=== PATIENT | female | born 1955 | race Caucasian/White ===

== ENCOUNTER 2023-04-02 21:19 | Inpatient (IN) | payer MEDICARE, MEDICAID ==
[~2023-04-02] VITALS: Ht 160 cm; Wt 70.5 kg
[~2023-04-02 21:19] MED LIST: CALCIUM+VIT D PO; COUM1TAB18 PO; FERR325T3 PO; MULTTAB4 PO; OXYC1TAB23 PO; TRAMADOL PO; TYLE-18 PO; TYLE325T5 PO; VITAMIN E PO; VITATAB64 PO
[2023-04-02] MEDS ORDERED: flumazeniL 0.5MG/5ML VIAL IV STA (21:28)
[2023-04-02] MEDS ORDERED: NS 1,000 ML IV SCH (21:30)
[2023-04-02] MEDS ORDERED: flumazeniL 0.5MG/5ML VIAL As Ordered ONE (21:30)
[2023-04-02] MEDS ORDERED: ROCURONIUM BROMIDE 50MG/5ML VIAL ONE (21:30)
[2023-04-02] MEDS ORDERED: NALOXONE 2MG/2ML SYRINGE As Ordered ONE (21:38)
[2023-04-02 21:46] LABS: BASO # 0.1 10^3/uL (0.0-0.2); BASO % 1.1 % (0.0-1.0); EOS # 0.1 10^3/uL (0.0-0.5); EOS % 1.8 % (0.0-3.0); HEMATOCRIT 34.1 % (36.0-47.0); HEMOGLOBIN 10.5 g/dl (12.0-15.5); LYMPH # 1.4 10^3/uL (1.5-5.0); LYMPH % 23.9 % (24.0-44.0); MEAN CORPUSCULAR HEMOGLOBIN 28.5 pg (27.0-33.0); MEAN CORPUSCULAR HGB CONC 30.8 g/dl (32.0-36.5); MEAN CORPUSCULAR VOLUME 92.7 fl (80.0-96.0); MONO # 0.5 10^3/uL (0.0-0.8); MONO % 9.6 % (2.0-8.0); NEUTROPHILS # 3.6 10^3/uL (1.5-8.5); NEUTROPHILS % 63.2 % (36.0-66.0); PLATELET COUNT, AUTOMATED 291 10^3/uL (150-450); RED BLOOD COUNT 3.68 10^6/uL (4.00-5.40); WHITE BLOOD COUNT 5.6 10^3/uL (4.0-10.0)
[2023-04-02 22:05] LABS: ETHYL ALCOHOL (ETHANOL) 0.118 % (0.000-0.010)
[2023-04-02 22:07] LABS: ALBUMIN 3.5 G/DL (3.2-5.2); ALKALINE PHOSPHATASE 93 U/L (46-116); ALT/SGPT 18 U/L (7.0-40); AST/SGOT 16 U/L (<34); BILIRUBIN,DIRECT < 0.1 MG/DL (<0.4); BILIRUBIN,TOTAL 0.2 MG/DL (0.3-1.2); BLOOD UREA NITROGEN 13 MG/DL (9-23); CALCIUM LEVEL 8.7 MG/DL (8.3-10.6); CARBON DIOXIDE LEVEL 20 MMOL/L (20-31); CHLORIDE LEVEL 112 MMOL/L (98-107); CPK CREATINE PHOSPHOKINASE 84 U/L (34-145); CREATININE FOR GFR 0.55 MG/DL (0.55-1.30); GLOMERULAR FILTRATION RATE > 60.0 (>45); GLUCOSE, FASTING 116 MG/DL (74-106); POTASSIUM SERUM 4.4 MMOL/L (3.5-5.1); SALICYLATE LEVEL < 3.0 MG/DL (<30); SODIUM LEVEL 144 MMOL/L (136-145); TOTAL PROTEIN 5.8 G/DL (5.7-8.2)
[2023-04-02 22:09] LABS: THYROID STIMULATING HORMONE 1.017 uIU/ML (0.55-4.78)
[2023-04-02 22:12] LABS: ABG BASE EXCESS -6.7 (-2.0-2.0); ABG HCO3 18.5 MMOL/L (22.0-26.0); ABG O2 SATURATION 97.2 % (95.0-99.0); ABG PARTIAL PRESSURE CO2 35.8 mmHg (35.0-45.0); ABG PARTIAL PRESSURE O2 184.7 mmHg (75.0-100.0); ABG TOTAL CO2 19.6 MMOL/L (23.0-31.0); ABG pH (ARTERIAL) 7.331 UNITS (7.350-7.450)
[2023-04-02 22:55] LABS: RSV AMPLIFICATION NEGATIVE (NEGATIVE)
[2023-04-03] VITALS (63 sets, daily range): BP systolic 94–156; BP diastolic 61–91; TEMP 97.2–98.8; O2SAT 97–100
[2023-04-03] MEDS ORDERED: SUCR1TAB56 PO (00:09)
[2023-04-03] MEDS ORDERED: VENL37.598 PO (00:09)
[2023-04-03] MEDS ORDERED: TRAZ-257 PO (00:09)
[2023-04-03] MEDS ORDERED: GABA-282 PO (00:09)
[2023-04-03] MEDS ORDERED: CARB25TA9 PO ×2 (00:09→11:10)
[2023-04-03] MEDS ORDERED: VENL75CA47 PO (00:09)
[2023-04-03] MEDS ORDERED: MECL-86 PO (00:09)
[2023-04-03] MEDS ORDERED: LORA1TAB23 PO (00:09)
[2023-04-03] MEDS ORDERED: CARB1TAB97 PO (00:09)
[2023-04-03] MEDS ORDERED: PANT40TA29 PO (00:09)
[2023-04-03] MEDS ORDERED: LETR2.5T2 PO (00:09)
[2023-04-03] MEDS ORDERED: TIZA10TA PO (00:09)
[2023-04-03] MEDS ORDERED: GABA-1171 PO (00:09)
[2023-04-03] MEDS ORDERED: BUPR-71 PO (00:09)
[2023-04-03] MEDS ORDERED: ARIP1TAB4 PO (00:09)
[2023-04-03] MEDS ORDERED: QUET100T2 PO (00:09)
[2023-04-03] MEDS ORDERED: XARE20TA PO (00:09)
[2023-04-03] MEDS ORDERED: LISI10TA22 PO (00:09)
[2023-04-03] MEDS ORDERED: BISO5TAB14 PO (00:09)
[2023-04-03] MEDS ORDERED: [UNRECOGNIZED DRUG - CODE] PO (00:12)
[2023-04-03] MEDS ORDERED: VITMTA PO (00:12)
[2023-04-03] MEDS ORDERED: CALCCAP4 PO (00:12)
[2023-04-03] MEDS ORDERED: FERR1TAB8 PO (00:12)
[2023-04-03] MEDS ORDERED: MAGN500C2 PO (00:12)
[2023-04-03] MEDS ORDERED: VITAE40CA PO (00:12)
[2023-04-03] MEDS ORDERED: VITA500T41 PO (00:12)
[2023-04-03] MEDS ORDERED: HOME MED LIST COMPLETE! XX SCH ×2 (00:15→11:15)
[2023-04-03] MEDS ORDERED: ALBUTEROL SULFATE 2.5MG/0.5ML INH NEB SOLN NEB PRN (00:35)
[2023-04-03 00:41] LABS: AMPHETAMINES LEVEL URINE NEGATIVE (NEGATIVE); BARBITURATES URINE NEGATIVE (NEGATIVE); CANNABINOIDS URINE NEGATIVE (NEGATIVE); COCAINE METABOLITE URINE NEGATIVE (NEGATIVE); METHADONE URINE NEGATIVE (NEGATIVE); OPIATES URINE NEGATIVE (NEGATIVE); PHENCYCLIDINE URINE NEGATIVE (NEGATIVE)
[2023-04-03 00:45] LABS: BENZODIAZEPINES URINE NEGATIVE (NEGATIVE)
[2023-04-03] MEDS ORDERED: propofoL 200 MG/20 ML VIAL As Ordered ONE (00:57)
[2023-04-03] MEDS ORDERED: PROPOFOL 1,000 MG/100 ML VIAL As Ordered ONE (00:59)
[2023-04-03] MEDS ORDERED: propofoL 1,000 MG in IV 1 EA IV SCH (01:00)
[2023-04-03] MEDS: propofoL 1,000 MG in IV 1 EA IV SCH ×5 (01:37→23:12)
[2023-04-03 02:15] LABS: ABG BASE EXCESS -6.4 (-2.0-2.0); ABG HCO3 19.1 MMOL/L (22.0-26.0); ABG O2 SATURATION 97.4 % (95.0-99.0); ABG PARTIAL PRESSURE O2 187.8 mmHg (75.0-100.0); ABG STANDARD HCO3 19.2 MMOL/L. (22.0-26.0); ABG TOTAL CO2 20.3 MMOL/L (23.0-31.0); ABG pH (ARTERIAL) 7.319 UNITS (7.350-7.450)
[2023-04-03] MEDS ORDERED: D5W IV ONE ×4 (04:30→08:30)
[2023-04-03] MEDS ORDERED: ACETYLCYSTEINE IV ONE ×4 (04:30→08:30)
[2023-04-03 05:56] LABS: ABG BASE EXCESS -5.8 (-2.0-2.0); ABG HCO3 19.2 MMOL/L (22.0-26.0); ABG O2 SATURATION 96.8 % (95.0-99.0); ABG PARTIAL PRESSURE CO2 35.6 mmHg (35.0-45.0); ABG PARTIAL PRESSURE O2 150.4 mmHg (75.0-100.0); ABG STANDARD HCO3 19.7 MMOL/L. (22.0-26.0); ABG TOTAL CO2 20.3 MMOL/L (23.0-31.0); ABG pH (ARTERIAL) 7.349 UNITS (7.350-7.450)
[2023-04-03 06:08] LABS: INR 1.14; PROTHROMBIN TIME 14.2 SECONDS (12.5-14.5)
[2023-04-03 06:35] LABS: ALBUMIN 2.6 G/DL (3.2-5.2); ALKALINE PHOSPHATASE 76 U/L (46-116); ALT/SGPT 14 U/L (7.0-40); AST/SGOT 15 U/L (<34); BILIRUBIN,TOTAL 0.3 MG/DL (0.3-1.2); BLOOD UREA NITROGEN 15 MG/DL (9-23); CALCIUM LEVEL 8.1 MG/DL (8.3-10.6); CARBON DIOXIDE LEVEL 23 MMOL/L (20-31); CHLORIDE LEVEL 109 MMOL/L (98-107); CREATININE FOR GFR 0.42 MG/DL (0.55-1.30); GLOMERULAR FILTRATION RATE > 60.0 (>45); GLUCOSE, FASTING 109 MG/DL (74-106); MAGNESIUM LEVEL 1.8 MG/DL (1.8-2.4); POTASSIUM SERUM 4.3 MMOL/L (3.5-5.1); SODIUM LEVEL 140 MMOL/L (136-145); TOTAL PROTEIN 4.8 G/DL (5.7-8.2)
[2023-04-03] MEDS: PANTOPRAZOLE 40MG VIAL IV SCH (09:25)
[2023-04-03] MEDS: ENOXAPARIN 100MG/1ML SYRINGE (J1650 PER 10MG) SC SCH (22:19)
[2023-04-03 23:55] LABS: ALBUMIN 2.5 G/DL (3.2-5.2); ALKALINE PHOSPHATASE 82 U/L (46-116); ALT/SGPT 14 U/L (7.0-40); AST/SGOT 14 U/L (<34); BILIRUBIN,DIRECT 0.1 MG/DL (<0.4); BILIRUBIN,TOTAL 0.3 MG/DL (0.3-1.2); TOTAL PROTEIN 4.7 G/DL (5.7-8.2)
[2023-04-04] VITALS (33 sets, daily range): BP systolic 129–169; BP diastolic 80–100; TEMP 98.2–99.3; O2SAT 94–98
[2023-04-04] MEDS: propofoL 1,000 MG in IV 1 EA IV SCH ×2 (04:17→08:16)
[2023-04-04 05:49] LABS: ALBUMIN 2.6 G/DL (3.2-5.2); ALKALINE PHOSPHATASE 84 U/L (46-116); ALT/SGPT 13 U/L (7.0-40); AST/SGOT 13 U/L (<34); BILIRUBIN,TOTAL 0.2 MG/DL (0.3-1.2); BLOOD UREA NITROGEN 7 MG/DL (9-23); CALCIUM LEVEL 8.9 MG/DL (8.3-10.6); CARBON DIOXIDE LEVEL 24 MMOL/L (20-31); CHLORIDE LEVEL 110 MMOL/L (98-107); CREATININE FOR GFR 0.44 MG/DL (0.55-1.30); GLOMERULAR FILTRATION RATE > 60.0 (>45); GLUCOSE, FASTING 81 MG/DL (74-106); MAGNESIUM LEVEL 1.7 MG/DL (1.8-2.4); PHOSPHORUS LEVEL 4.7 MG/DL (2.4-5.1); POTASSIUM SERUM 4.1 MMOL/L (3.5-5.1); SODIUM LEVEL 142 MMOL/L (136-145); TOTAL PROTEIN 4.8 G/DL (5.7-8.2)
[2023-04-04] MEDS ORDERED: D5W/0.9% SODIUM CHLORIDE 1,000 ML IV SCH (08:05)
[2023-04-04] MEDS: ENOXAPARIN 100MG/1ML SYRINGE (J1650 PER 10MG) SC SCH (08:15)
[2023-04-04] MEDS: PANTOPRAZOLE 40MG VIAL IV SCH (08:15)
[2023-04-04] MEDS ORDERED: MAG SULF 1GM/100ML (MAG RUN) 1 GM in IV 1 EA IV ONE (10:00)
[2023-04-04] MEDS ORDERED: hydrALAZINE 20MG/ML 1ML VIAL IV PRN (11:50)
[2023-04-04] MEDS ORDERED: tiZANidine 4 MG TAB PO PRN (13:45)
[2023-04-04] MEDS ORDERED: MECLIZINE 25 MG TABLET PO PRN (13:45)
[2023-04-04] MEDS ORDERED: LIDOCAINE 2% 100MG/5ML SDV (FOR ANES.) As Ordered ONE (16:51)
[2023-04-04] MEDS ORDERED: MIDAZOLAM INJ 2MG/2ML VIAL As Ordered ONE (16:51)
[2023-04-04] MEDS ORDERED: propofoL 200 MG/20 ML VIAL As Ordered ONE (16:51)
[2023-04-04] MEDS ORDERED: fentaNYL 100 MCG/2 ML INJECTION As Ordered ONE (16:52)
[2023-04-04] MEDS: GABAPENTIN 300 MG CAP PO SCH ×2 (17:39→20:18)
[2023-04-04] MEDS: SUCRALFATE 1 GM TAB PO SCH ×2 (17:39→20:19)
[2023-04-04] MEDS ORDERED: LORazepam 2 MG TAB PO PRN (17:50)
[2023-04-04] MEDS ORDERED: RIVAROXABAN 20MG TAB (XARELTO) PO SCH (18:00)
[2023-04-04] MEDS: THIAMINE 100 MG TAB PO SCH (18:27)
[2023-04-04] MEDS: FOLIC ACID 1MG TAB PO SCH (18:28)
[2023-04-04] MEDS: buPROPion **SR TABLET** (ZYBAN) 150MG PO SCH (20:19)
[2023-04-04] MEDS: LORazepam 1 MG TAB PO SCH (20:19)
[2023-04-04] MEDS ORDERED: QUEtiapine FUMARATE 200 MG TAB PO SCH (21:00)
[2023-04-04] MEDS ORDERED: SINEMET**CR** 25/100 TABCR PO SCH (21:00)
[2023-04-04] MEDS ORDERED: traZODone 100 MG TAB PO SCH (21:00)
[2023-04-05] VITALS (7 sets, daily range): BP systolic 115–147; BP diastolic 79–91; TEMP 97.5–100.4; O2SAT 94–96
[2023-04-05 05:10] LABS: HEMATOCRIT 34.2 % (36.0-47.0); HEMOGLOBIN 10.6 g/dl (12.0-15.5); MEAN CORPUSCULAR HEMOGLOBIN 28.2 pg (27.0-33.0); PLATELET COUNT, AUTOMATED 214 10^3/uL (150-450); RED BLOOD COUNT 3.76 10^6/uL (4.00-5.40); WHITE BLOOD COUNT 5.5 10^3/uL (4.0-10.0)
[2023-04-05 05:36] LABS: ALBUMIN 2.8 G/DL (3.2-5.2); ALKALINE PHOSPHATASE 85 U/L (46-116); ALT/SGPT < 9 U/L (7.0-40); AST/SGOT 12 U/L (<34); BILIRUBIN,TOTAL 0.6 MG/DL (0.3-1.2); BLOOD UREA NITROGEN 7 MG/DL (9-23); CALCIUM LEVEL 8.6 MG/DL (8.3-10.6); CARBON DIOXIDE LEVEL 25 MMOL/L (20-31); CHLORIDE LEVEL 110 MMOL/L (98-107); CREATININE FOR GFR 0.46 MG/DL (0.55-1.30); GLOMERULAR FILTRATION RATE > 60.0 (>45); GLUCOSE, FASTING 134 MG/DL (74-106); MAGNESIUM LEVEL 1.7 MG/DL (1.8-2.4); POTASSIUM SERUM 3.7 MMOL/L (3.5-5.1); SODIUM LEVEL 143 MMOL/L (136-145); TOTAL PROTEIN 5.1 G/DL (5.7-8.2)
[2023-04-05] MEDS ORDERED: MAG SULF 1GM/100ML (MAG RUN) 1 GM in IV 1 EA IV ONE (06:00)
[2023-04-05 07:29] LABS: ERYTHROCYTE SEDIMENTATION RATE 16 mm/hr (0-30)
[2023-04-05] MEDS ORDERED: ARIPiprazole 2 MG TAB PO SCH (09:00)
[2023-04-05] MEDS ORDERED: LETROZOLE 2.5 MG TAB PO SCH (09:00)
[2023-04-05] MEDS ORDERED: SINEMET 25-100 MG TAB PO SCH ×2 (09:00→13:00)
[2023-04-05] MEDS ORDERED: PANTOPRAZOLE 20 MG TAB PO SCH (09:00)
[2023-04-05] MEDS ORDERED: VENLAFAXINE **XR** 37.5 MG CAPSULE PO SCH (09:00)
[2023-04-05] MEDS ORDERED: VITAMIN E 400 INTERNATIONAL UNITS CAP PO SCH (09:00)
[2023-04-05] MEDS ORDERED: CYANOCOBALAMIN 500 MCG TAB PO SCH (09:00)
[2023-04-05] MEDS ORDERED: MULTIVITAMINS/MINERALS THERAP 1 TAB PO SCH (09:00)
[2023-04-05] MEDS ORDERED: VENLAFAXINE **XR** 75MG CAPSULE PO SCH (09:00)
[2023-04-05] MEDS ORDERED: CALCIUM/VITAMIN D 500 MG TAB PO SCH (09:00)
[2023-04-05] MEDS ORDERED: MAGNESIUM OXIDE 400MG TAB (MAG-OX) PO SCH (09:00)
[2023-04-05] MEDS ORDERED: FERROUS SULFATE 325MG TAB PO SCH (09:00)
[2023-04-05] MEDS ORDERED: bisoproloL fumarate 5 MG TAB PO SCH (09:00)
[2023-04-05] MEDS ORDERED: OMEGA-3 1000MG CAPSULE PO SCH (09:00)
[2023-04-05] MEDS: SUCRALFATE 1 GM TAB PO SCH (10:03)
[2023-04-05] MEDS: THIAMINE 100 MG TAB PO SCH (10:05)
[2023-04-05] MEDS: GABAPENTIN 300 MG CAP PO SCH (10:06)
[2023-04-05] MEDS: buPROPion **SR TABLET** (ZYBAN) 150MG PO SCH (10:06)
[2023-04-05] MEDS: LORazepam 1 MG TAB PO SCH (10:07)
[2023-04-05] MEDS: FOLIC ACID 1MG TAB PO SCH (10:07)
== END 2023-04-05 14:58 | DRG 917 ==
LOC: M ED 21:19 → EDBD 21:19 → M ED INP 04-03 00:32 → M ICU 04-03 01:47
PROVIDERS: ADMIT Internal Medicine; ATTEND Student in an Organized Health Care Education/Training Program
DX: T54 Toxic effect of corrosive substances (principal); U07.1 COVID-19; J96.90 Respiratory failure, unspecified, unspecified whether with hypoxia or hypercapnia; G92.8 Other toxic encephalopathy; F13.20 Sedative, hypnotic or anxiolytic dependence, uncomplicated; F33.2 Major depressive disorder, recurrent severe without psychotic features; K21.9 Gastro-esophageal reflux disease without esophagitis; C50.919 Malignant neoplasm of unspecified site of unspecified female breast; I10 Essential (primary) hypertension; G20.A1 Parkinson's disease without dyskinesia, without mention of fluctuations; I48.0 Paroxysmal atrial fibrillation; D50.9 Iron deficiency anemia, unspecified; Z79.01 Long term (current) use of anticoagulants; F41.9 Anxiety disorder, unspecified; Z88.5 Allergy status to narcotic agent; Z79.899 Other long term (current) drug therapy; G62.9 Polyneuropathy, unspecified; M54.50 Low back pain, unspecified; T18.2XXA Foreign body in stomach, initial encounter; W44.E2XA Non-magnetic metal coin entering into or through a natural orifice, initial encounter

== ENCOUNTER 2023-04-05 13:14 | Inpatient (IN) | payer MEDICAID, MEDICARE ==
[~2023-04-05 13:14] MED LIST changes: +ARIP1TAB4 PO; +BISO5TAB14 PO; +BUPR-71 PO; +CALCCAP4 PO; +CARB1TAB97 PO; +CARB25TA9 PO; +FERR1TAB8 PO; +GABA-1171 PO; +GABA-282 PO; +LETR2.5T2 PO; +LISI10TA22 PO; +LORA1TAB23 PO; +MAGN500C2 PO; +MECL-86 PO; +PANT40TA29 PO; +QUET100T2 PO; +SUCR1TAB56 PO; +TIZA10TA PO; +TRAZ-257 PO; +VENL37.598 PO; +VENL75CA47 PO; +VITA500T41 PO; +VITAE40CA PO; +VITMTA PO; +XARE20TA PO; +[UNRECOGNIZED DRUG - CODE] PO
[2023-04-05] MEDS ORDERED: diphenhydrAMINE 25MG CAP PO PRN (13:20)
[2023-04-05] MEDS ORDERED: traZODone 50 MG TAB PO PRN (13:20)
[2023-04-05] MEDS ORDERED: ACETAMINOPHEN TAB 650MG DOSE (2X325MG) PO PRN (13:20)
[2023-04-05] MEDS ORDERED: MOM 30ML SUSPENSION UDC PO PRN (13:20)
[2023-04-05] MEDS ORDERED: MAALOX 30 ML SUSP *UDC PO PRN (13:20)
[2023-04-05] MEDS ORDERED: IBUPROFEN 400MG TAB PO PRN (13:20)
[2023-04-05] MEDS ORDERED: MECLIZINE 25 MG TABLET PO PRN (13:50)
[2023-04-05] MEDS ORDERED: tiZANidine 4 MG TAB PO PRN (13:50)
[2023-04-05] MEDS ORDERED: LORazepam 2 MG TAB PO PRN (13:50)
[2023-04-05 15:05] VITALS: BP 130/89; TEMP 98.4; O2SAT 99
[2023-04-05] MEDS ORDERED: GABAPENTIN 100 MG CAP PO SCH (16:00)
[2023-04-05] MEDS: SUCRALFATE 1 GM TAB PO SCH ×2 (16:53→20:43)
[2023-04-05] MEDS: LORazepam 1 MG TAB PO SCH (20:42)
[2023-04-05] MEDS: CALCIUM/VITAMIN D 500 MG TAB PO SCH (20:42)
[2023-04-05] MEDS: buPROPion **SR TABLET** (ZYBAN) 150MG PO SCH (20:42)
[2023-04-05] MEDS: RIVAROXABAN 20MG TAB (XARELTO) PO SCH (20:42)
[2023-04-05] MEDS: GABAPENTIN 300 MG CAP PO SCH (20:42)
[2023-04-05] MEDS: QUEtiapine FUMARATE 200 MG TAB PO SCH (20:43)
[2023-04-05] MEDS: SINEMET**CR** 25/100 TABCR PO SCH (20:43)
[2023-04-05] MEDS: traZODone 100 MG TAB PO SCH (20:43)
[2023-04-06 06:44] VITALS: BP 122/76
[2023-04-06] MEDS ORDERED: IPRATROPIUM 0.5MG/ALBUTEROL 2.5MG INH SOL UD 3ML (DUONEB) NEB ONE (06:45)
[2023-04-06] MEDS: SINEMET 25-100 MG TAB PO SCH ×2 (08:49→12:02)
[2023-04-06] MEDS: GABAPENTIN 300 MG CAP PO SCH ×3 (08:49→20:25)
[2023-04-06] MEDS: FERROUS SULFATE 325MG TAB PO SCH (08:49)
[2023-04-06] MEDS: CYANOCOBALAMIN 500 MCG TAB PO SCH (08:49)
[2023-04-06] MEDS: bisoproloL fumarate 5 MG TAB PO SCH (08:50)
[2023-04-06] MEDS: MULTIVITAMINS/MINERALS THERAP 1 TAB PO SCH (08:50)
[2023-04-06] MEDS: VENLAFAXINE **XR** 75MG CAPSULE PO SCH (08:50)
[2023-04-06] MEDS: VENLAFAXINE **XR** 37.5 MG CAPSULE PO SCH (08:50)
[2023-04-06] MEDS: CALCIUM/VITAMIN D 500 MG TAB PO SCH ×2 (08:50→20:25)
[2023-04-06] MEDS: PANTOPRAZOLE 40MG TAB (PROTONIX) PO SCH (08:50)
[2023-04-06] MEDS: VITAMIN E 400 INTERNATIONAL UNITS CAP PO SCH (08:50)
[2023-04-06] MEDS: SUCRALFATE 1 GM TAB PO SCH ×3 (08:50→20:25)
[2023-04-06] MEDS: ARIPiprazole 2 MG TAB PO SCH (08:50)
[2023-04-06] MEDS: LETROZOLE 2.5 MG TAB PO SCH (08:51)
[2023-04-06] MEDS: buPROPion **SR TABLET** (ZYBAN) 150MG PO SCH ×2 (08:51→20:25)
[2023-04-06] MEDS: LORazepam 1 MG TAB PO SCH ×2 (08:51→20:25)
[2023-04-06 11:00] VITALS: O2SAT 96
[2023-04-06 14:40] VITALS: BP 132/83
[2023-04-06 15:50] VITALS: BP 132/83; TEMP 98.4; O2SAT 96
[2023-04-06] MEDS: RIVAROXABAN 20MG TAB (XARELTO) PO SCH (16:48)
[2023-04-06] MEDS ORDERED: PREVNAR-20 VACCINE 0.5ML SYRINGE IM.IMMUN ONE (17:00)
[2023-04-06 17:11] VITALS: BP 132/83; TEMP 98.4; O2SAT 98
[2023-04-06] MEDS: QUEtiapine FUMARATE 200 MG TAB PO SCH (20:24)
[2023-04-06] MEDS: SINEMET**CR** 25/100 TABCR PO SCH (20:24)
[2023-04-06] MEDS: traZODone 100 MG TAB PO SCH (20:26)
[2023-04-07 01:00] VITALS: O2SAT 90
[2023-04-07 06:00] VITALS: BP 126/79
[2023-04-07 06:24] VITALS: BP 126/79; TEMP 97.9; O2SAT 94
[2023-04-07] MEDS: VITAMIN E 400 INTERNATIONAL UNITS CAP PO SCH (08:23)
[2023-04-07] MEDS: SINEMET 25-100 MG TAB PO SCH ×2 (08:23→12:13)
[2023-04-07] MEDS: bisoproloL fumarate 5 MG TAB PO SCH (08:24)
[2023-04-07] MEDS: LORazepam 1 MG TAB PO SCH ×2 (08:24→21:04)
[2023-04-07] MEDS: GABAPENTIN 300 MG CAP PO SCH ×3 (08:24→21:05)
[2023-04-07] MEDS: SUCRALFATE 1 GM TAB PO SCH ×3 (08:24→21:05)
[2023-04-07] MEDS: LETROZOLE 2.5 MG TAB PO SCH (08:24)
[2023-04-07] MEDS: CYANOCOBALAMIN 500 MCG TAB PO SCH (08:24)
[2023-04-07] MEDS: CALCIUM/VITAMIN D 500 MG TAB PO SCH ×2 (08:25→21:04)
[2023-04-07] MEDS: buPROPion **SR TABLET** (ZYBAN) 150MG PO SCH ×2 (08:25→21:05)
[2023-04-07] MEDS: VENLAFAXINE **XR** 75MG CAPSULE PO SCH (08:25)
[2023-04-07] MEDS: PANTOPRAZOLE 40MG TAB (PROTONIX) PO SCH (08:25)
[2023-04-07] MEDS: ARIPiprazole 2 MG TAB PO SCH (08:25)
[2023-04-07] MEDS: FERROUS SULFATE 325MG TAB PO SCH (08:25)
[2023-04-07] MEDS: VENLAFAXINE **XR** 37.5 MG CAPSULE PO SCH (08:25)
[2023-04-07] MEDS: MULTIVITAMINS/MINERALS THERAP 1 TAB PO SCH (08:25)
[2023-04-07 16:24] VITALS: BP 146/90; TEMP 98.4; O2SAT 94
[2023-04-07] MEDS: RIVAROXABAN 20MG TAB (XARELTO) PO SCH (17:16)
[2023-04-07] MEDS: SINEMET**CR** 25/100 TABCR PO SCH (21:04)
[2023-04-07] MEDS: QUEtiapine FUMARATE 200 MG TAB PO SCH (21:04)
[2023-04-07] MEDS: traZODone 100 MG TAB PO SCH (21:05)
[2023-04-07 21:12] VITALS: O2SAT 94
[2023-04-08 03:45] VITALS: O2SAT 94
[2023-04-08 06:32] VITALS: BP 137/84; TEMP 98.2; O2SAT 94
[2023-04-08] MEDS: VENLAFAXINE **XR** 75MG CAPSULE PO SCH (08:37)
[2023-04-08] MEDS: SINEMET 25-100 MG TAB PO SCH ×2 (08:37→12:39)
[2023-04-08] MEDS: LORazepam 1 MG TAB PO SCH ×2 (08:37→20:49)
[2023-04-08] MEDS: MULTIVITAMINS/MINERALS THERAP 1 TAB PO SCH (08:38)
[2023-04-08] MEDS: VITAMIN E 400 INTERNATIONAL UNITS CAP PO SCH (08:38)
[2023-04-08] MEDS: SUCRALFATE 1 GM TAB PO SCH ×3 (08:38→20:49)
[2023-04-08] MEDS: buPROPion **SR TABLET** (ZYBAN) 150MG PO SCH ×2 (08:38→20:50)
[2023-04-08] MEDS: CALCIUM/VITAMIN D 500 MG TAB PO SCH ×2 (08:38→20:49)
[2023-04-08] MEDS: PANTOPRAZOLE 40MG TAB (PROTONIX) PO SCH (08:38)
[2023-04-08] MEDS: CYANOCOBALAMIN 500 MCG TAB PO SCH (08:38)
[2023-04-08] MEDS: LETROZOLE 2.5 MG TAB PO SCH (08:39)
[2023-04-08] MEDS: FERROUS SULFATE 325MG TAB PO SCH (08:39)
[2023-04-08] MEDS: GABAPENTIN 300 MG CAP PO SCH ×3 (08:39→20:50)
[2023-04-08] MEDS: VENLAFAXINE **XR** 37.5 MG CAPSULE PO SCH (08:40)
[2023-04-08] MEDS: ARIPiprazole 2 MG TAB PO SCH (08:40)
[2023-04-08] MEDS: bisoproloL fumarate 5 MG TAB PO SCH (08:54)
[2023-04-08 09:12] VITALS: O2SAT 94
[2023-04-08 16:23] VITALS: BP 135/85; TEMP 99.2; O2SAT 96
[2023-04-08] MEDS: RIVAROXABAN 20MG TAB (XARELTO) PO SCH (17:19)
[2023-04-08] MEDS: QUEtiapine FUMARATE 200 MG TAB PO SCH (20:49)
[2023-04-08] MEDS: SINEMET**CR** 25/100 TABCR PO SCH (20:50)
[2023-04-08] MEDS: traZODone 100 MG TAB PO SCH (20:50)
[2023-04-09 00:23] VITALS: O2SAT 95
[2023-04-09 06:24] VITALS: BP 131/79; TEMP 97; O2SAT 95
[2023-04-09] MEDS: CYANOCOBALAMIN 500 MCG TAB PO SCH (08:37)
[2023-04-09] MEDS: bisoproloL fumarate 5 MG TAB PO SCH (08:37)
[2023-04-09] MEDS: MULTIVITAMINS/MINERALS THERAP 1 TAB PO SCH (08:37)
[2023-04-09] MEDS: CALCIUM/VITAMIN D 500 MG TAB PO SCH ×2 (08:37→20:45)
[2023-04-09] MEDS: PANTOPRAZOLE 40MG TAB (PROTONIX) PO SCH (08:38)
[2023-04-09] MEDS: SUCRALFATE 1 GM TAB PO SCH ×3 (08:38→20:45)
[2023-04-09] MEDS: VITAMIN E 400 INTERNATIONAL UNITS CAP PO SCH (08:38)
[2023-04-09] MEDS: VENLAFAXINE **XR** 37.5 MG CAPSULE PO SCH (08:38)
[2023-04-09] MEDS: GABAPENTIN 300 MG CAP PO SCH ×3 (08:39→20:45)
[2023-04-09] MEDS: ARIPiprazole 2 MG TAB PO SCH (08:39)
[2023-04-09] MEDS: LETROZOLE 2.5 MG TAB PO SCH (08:39)
[2023-04-09] MEDS: LORazepam 1 MG TAB PO SCH ×2 (08:39→20:44)
[2023-04-09] MEDS: buPROPion **SR TABLET** (ZYBAN) 150MG PO SCH ×2 (08:39→20:45)
[2023-04-09] MEDS: VENLAFAXINE **XR** 75MG CAPSULE PO SCH (08:43)
[2023-04-09] MEDS: SINEMET 25-100 MG TAB PO SCH ×2 (08:43→13:22)
[2023-04-09] MEDS: FERROUS SULFATE 325MG TAB PO SCH (08:49)
[2023-04-09] MEDS: MIRALAX *UNIT DOSE* 17GM PACKET PO SCH ×2 (13:44→20:47)
[2023-04-09] MEDS: RIVAROXABAN 20MG TAB (XARELTO) PO SCH (17:09)
[2023-04-09 18:04] VITALS: BP 135/82; TEMP 99.1; O2SAT 95
[2023-04-09] MEDS: SINEMET**CR** 25/100 TABCR PO SCH (20:44)
[2023-04-09] MEDS: traZODone 100 MG TAB PO SCH (20:46)
[2023-04-09] MEDS: QUEtiapine FUMARATE 200 MG TAB PO SCH (20:46)
[2023-04-10 06:29] VITALS: BP 133/73; TEMP 96.8; O2SAT 95
[2023-04-10] MEDS: MIRALAX *UNIT DOSE* 17GM PACKET PO SCH ×2 (09:00→20:30)
[2023-04-10] MEDS: ARIPiprazole 2 MG TAB PO SCH (09:24)
[2023-04-10] MEDS: PILL CUTTER 1 EACH XX PRN (09:24)
[2023-04-10] MEDS: CALCIUM/VITAMIN D 500 MG TAB PO SCH ×2 (09:24→20:30)
[2023-04-10] MEDS: FERROUS SULFATE 325MG TAB PO SCH (09:25)
[2023-04-10] MEDS: SUCRALFATE 1 GM TAB PO SCH ×3 (09:25→20:31)
[2023-04-10] MEDS: VENLAFAXINE **XR** 37.5 MG CAPSULE PO SCH (09:25)
[2023-04-10] MEDS: VENLAFAXINE **XR** 75MG CAPSULE PO SCH (09:25)
[2023-04-10] MEDS: CYANOCOBALAMIN 500 MCG TAB PO SCH (09:25)
[2023-04-10] MEDS: GABAPENTIN 300 MG CAP PO SCH ×3 (09:25→20:31)
[2023-04-10] MEDS: PANTOPRAZOLE 40MG TAB (PROTONIX) PO SCH (09:25)
[2023-04-10] MEDS: MULTIVITAMINS/MINERALS THERAP 1 TAB PO SCH (09:25)
[2023-04-10] MEDS: LORazepam 1 MG TAB PO SCH ×2 (09:25→20:31)
[2023-04-10] MEDS: buPROPion **SR TABLET** (ZYBAN) 150MG PO SCH ×2 (09:25→20:32)
[2023-04-10] MEDS: bisoproloL fumarate 5 MG TAB PO SCH (09:26)
[2023-04-10] MEDS: SINEMET 25-100 MG TAB PO SCH ×2 (09:27→13:02)
[2023-04-10] MEDS: LETROZOLE 2.5 MG TAB PO SCH (09:28)
[2023-04-10] MEDS: VITAMIN E 400 INTERNATIONAL UNITS CAP PO SCH (09:28)
[2023-04-10 16:01] VITALS: BP 134/88; TEMP 98.8; O2SAT 98
[2023-04-10] MEDS: RIVAROXABAN 20MG TAB (XARELTO) PO SCH (17:57)
[2023-04-10] MEDS: QUEtiapine FUMARATE 200 MG TAB PO SCH (20:31)
[2023-04-10] MEDS: SINEMET**CR** 25/100 TABCR PO SCH (20:31)
[2023-04-10] MEDS: traZODone 100 MG TAB PO SCH (20:31)
[2023-04-11 06:30] VITALS: BP 115/58; TEMP 97.3; O2SAT 96
[2023-04-11] MEDS: ARIPiprazole 2 MG TAB PO SCH (08:49)
[2023-04-11] MEDS: MIRALAX *UNIT DOSE* 17GM PACKET PO SCH ×2 (08:49→20:59)
[2023-04-11] MEDS: LORazepam 1 MG TAB PO SCH ×2 (08:51→21:00)
[2023-04-11] MEDS: LETROZOLE 2.5 MG TAB PO SCH (08:51)
[2023-04-11] MEDS: FERROUS SULFATE 325MG TAB PO SCH (08:51)
[2023-04-11] MEDS: MULTIVITAMINS/MINERALS THERAP 1 TAB PO SCH (08:51)
[2023-04-11] MEDS: VENLAFAXINE **XR** 75MG CAPSULE PO SCH (08:51)
[2023-04-11] MEDS: buPROPion **SR TABLET** (ZYBAN) 150MG PO SCH ×2 (08:51→20:59)
[2023-04-11] MEDS: GABAPENTIN 300 MG CAP PO SCH ×3 (08:51→20:59)
[2023-04-11] MEDS: VENLAFAXINE **XR** 37.5 MG CAPSULE PO SCH (08:52)
[2023-04-11] MEDS: CALCIUM/VITAMIN D 500 MG TAB PO SCH ×2 (08:52→21:00)
[2023-04-11] MEDS: bisoproloL fumarate 5 MG TAB PO SCH (08:52)
[2023-04-11] MEDS: SUCRALFATE 1 GM TAB PO SCH ×3 (08:52→20:59)
[2023-04-11] MEDS: CYANOCOBALAMIN 500 MCG TAB PO SCH (08:52)
[2023-04-11] MEDS: VITAMIN E 400 INTERNATIONAL UNITS CAP PO SCH (08:52)
[2023-04-11] MEDS: PANTOPRAZOLE 40MG TAB (PROTONIX) PO SCH (08:52)
[2023-04-11] MEDS: SINEMET 25-100 MG TAB PO SCH ×2 (08:54→12:36)
[2023-04-11 17:23] VITALS: BP 123/79; TEMP 97.5; O2SAT 96
[2023-04-11] MEDS: RIVAROXABAN 20MG TAB (XARELTO) PO SCH (17:40)
[2023-04-11] MEDS: traZODone 100 MG TAB PO SCH (21:00)
[2023-04-11] MEDS: QUEtiapine FUMARATE 200 MG TAB PO SCH (21:00)
[2023-04-11] MEDS: SINEMET**CR** 25/100 TABCR PO SCH (21:00)
[2023-04-12 06:23] VITALS: BP 126/78; TEMP 96.8; O2SAT 99
[2023-04-12] MEDS: MIRALAX *UNIT DOSE* 17GM PACKET PO SCH (08:58)
[2023-04-12] MEDS: CYANOCOBALAMIN 500 MCG TAB PO SCH (09:00)
[2023-04-12] MEDS: CALCIUM/VITAMIN D 500 MG TAB PO SCH (09:00)
[2023-04-12] MEDS: buPROPion **SR TABLET** (ZYBAN) 150MG PO SCH (09:01)
[2023-04-12] MEDS: VENLAFAXINE **XR** 37.5 MG CAPSULE PO SCH (09:01)
[2023-04-12] MEDS: SUCRALFATE 1 GM TAB PO SCH (09:01)
[2023-04-12] MEDS: FERROUS SULFATE 325MG TAB PO SCH (09:02)
[2023-04-12] MEDS: ARIPiprazole 2 MG TAB PO SCH (09:02)
[2023-04-12] MEDS: GABAPENTIN 300 MG CAP PO SCH (09:02)
[2023-04-12] MEDS: MULTIVITAMINS/MINERALS THERAP 1 TAB PO SCH (09:02)
[2023-04-12] MEDS: LORazepam 1 MG TAB PO SCH (09:03)
[2023-04-12 09:04] VITALS: BP 126/78
[2023-04-12] MEDS: PANTOPRAZOLE 40MG TAB (PROTONIX) PO SCH (09:04)
[2023-04-12] MEDS: VITAMIN E 400 INTERNATIONAL UNITS CAP PO SCH (09:04)
[2023-04-12] MEDS: LETROZOLE 2.5 MG TAB PO SCH (09:04)
[2023-04-12] MEDS: bisoproloL fumarate 5 MG TAB PO SCH (09:04)
[2023-04-12] MEDS: VENLAFAXINE **XR** 75MG CAPSULE PO SCH (09:04)
[2023-04-12] MEDS: SINEMET 25-100 MG TAB PO SCH (09:05)
[2023-04-12] MEDS: PILL CUTTER 1 EACH XX PRN (09:05)
[2023-04-12] MEDS ORDERED: TRAZ-257 PO (10:36)
[2023-04-12] MEDS ORDERED: ARIP1TAB4 PO (10:36)
[2023-04-12] MEDS ORDERED: VENL75CA47 PO (10:36)
[2023-04-12] MEDS ORDERED: VENL37.598 PO (10:36)
[2023-04-12] MEDS ORDERED: LORA1TAB23 PO (10:36)
[2023-04-12] MEDS ORDERED: GABA-282 PO (10:36)
[2023-04-12] MEDS ORDERED: QUET100T2 PO (10:36)
[2023-04-12] MEDS ORDERED: BUPR-71 PO (10:36)
== END 2023-04-12 13:00 | disposition home or self-care (01) | DRG 885 ==
LOC: M PSY 13:18
PROVIDERS: ADMIT Psychiatry & Neurology Psychiatry; ATTEND Student in an Organized Health Care Education/Training Program
DX: F31.9 Bipolar disorder, unspecified (principal); U07.1 COVID-19; R45.851 Suicidal ideations; F43.10 Post-traumatic stress disorder, unspecified; Z79.899 Other long term (current) drug therapy; Z88.5 Allergy status to narcotic agent; Z91.410 Personal history of adult physical and sexual abuse

== ENCOUNTER 2024-04-21 08:13 | Observation (INO) | payer MEDICARE, MEDICAID ==
[~2024-04-21] VITALS: Ht 152.4 cm; Wt 68.6 kg
[~2024-04-21 08:13] MED LIST changes: +GABA-1172 PO; -GABA-282 PO
[2024-04-21 11:15] LABS: ABG BASE EXCESS -0.5 (-2.0-2.0); ABG HCO3 24.5 MMOL/L (22.0-26.0); ABG O2 SATURATION 96.4 % (95.0-99.0); ABG PARTIAL PRESSURE CO2 41.6 mmHg (35.0-45.0); ABG PARTIAL PRESSURE O2 87.6 mmHg (75.0-100.0); ABG STANDARD HCO3 24.1 MMOL/L. (22.0-26.0); ABG TOTAL CO2 25.8 MMOL/L (23.0-31.0); ABG pH (ARTERIAL) 7.388 UNITS (7.350-7.450)
[2024-04-21 11:45] LABS: HEMATOCRIT 36.5 % (36.0-47.0); HEMOGLOBIN 11.3 g/dl (12.0-15.5); MEAN CORPUSCULAR HEMOGLOBIN 28.2 pg (27.0-33.0); PLATELET COUNT, AUTOMATED 212 10^3/uL (150-450); RED BLOOD COUNT 4.01 10^6/uL (4.00-5.40)
[2024-04-21 12:05] LABS: ETHYL ALCOHOL (ETHANOL) < 0.003 % (0.000-0.010)
[2024-04-21 12:07] LABS: ALBUMIN 3.2 G/DL (3.2-5.2); ALKALINE PHOSPHATASE 82 U/L (35-104); ALT/SGPT 18 U/L (7.0-40); AST/SGOT 24 U/L (<34); BILIRUBIN,DIRECT 0.1 MG/DL (<0.4); BILIRUBIN,TOTAL 0.4 MG/DL (0.3-1.2); BLOOD UREA NITROGEN 17 MG/DL (9-23); CALCIUM LEVEL 8.8 MG/DL (8.3-10.6); CARBON DIOXIDE LEVEL 27 MMOL/L (20-31); CHLORIDE LEVEL 112 MMOL/L (98-107); CREATININE FOR GFR 0.59 MG/DL (0.55-1.30); GLOMERULAR FILTRATION RATE > 60.0 (>45); GLUCOSE, FASTING 101 MG/DL (74-106); SALICYLATE LEVEL < 3.0 MG/DL (<30); SODIUM LEVEL 148 MMOL/L (136-145); TOTAL PROTEIN 5.7 G/DL (5.7-8.2)
[2024-04-21] MEDS ORDERED: MOM 30ML SUSPENSION UDC PO PRN (12:25)
[2024-04-21] MEDS ORDERED: ACETAMINOPHEN 325 MG TAB PO PRN (12:25)
[2024-04-21] MEDS ORDERED: MAALOX 30 ML SUSP *UDC PO PRN (12:25)
[2024-04-21 12:42] LABS: KETONE, URINE AUTO RFX NEGATIVE (NEGATIVE); LEUKOCYTE ESTERASE UR AUTO RFX 2+ (NEGATIVE); NITRITE, URINE AUTO RFX POSITIVE (NEGATIVE); RBC, URINE AUTO RFX 2 /HPF (0-3); SQUAM EPITHELIAL CELL UR AURFX 0 /HPF (0-6); WBC, URINE AUTO RFX 130 /HPF (0-3)
[2024-04-21] MEDS: DOCUSATE SODIUM 100MG CAPSULE PO SCH (12:46)
[2024-04-21] MEDS: D5W/0.45% SODIUM CHLORIDE 1,000 ML IV SCH (12:47)
[2024-04-21] MEDS: cefTRIAXone SOD 1 GM in DEXTROSE 5% (D5W) ADV/MINI-BAG 50 ML IV SCH (12:52)
[2024-04-21] MEDS: bisoproloL fumarate 5 MG TAB PO ONE (13:08)
[2024-04-21] MEDS ORDERED: BUPR15TASR PO (16:26)
[2024-04-21] MEDS ORDERED: FLUO-365 PO (16:28)
[2024-04-21] MEDS ORDERED: NALT50TA4 PO (16:28)
[2024-04-21] MEDS ORDERED: QUET200T2 PO (16:30)
[2024-04-21] MEDS ORDERED: HOME MED LIST COMPLETE! XX SCH (16:35)
[2024-04-21] MEDS: PANTOPRAZOLE 40MG TAB (PROTONIX) PO SCH (16:56)
[2024-04-21] MEDS: FLUoxetine 20MG CAP PO SCH (16:57)
[2024-04-21] MEDS ORDERED: BISO10TA14 PO (17:18)
[2024-04-21] MEDS ORDERED: MULT-90 PO (17:20)
[2024-04-21] MEDS ORDERED: GABAPENTIN 300 MG CAP PO SCH (21:00)
[2024-04-21] MEDS: SUCRALFATE 1 GM TAB PO SCH (21:17)
[2024-04-21] MEDS: HEPARIN SOD (PORCINE) 5000UNITS/ML 1ML VIAL/SYRINGE SQ SCH (21:20)
[2024-04-21] MEDS: SINEMET**CR** 25/100 TABCR PO SCH (21:20)
[2024-04-21] MEDS: buPROPion **SR TABLET** (ZYBAN) 150MG PO SCH (21:21)
[2024-04-21] MEDS: GABAPENTIN 100 MG CAP PO SCH (21:41)
[2024-04-22] VITALS (7 sets, daily range): BP systolic 109–141; BP diastolic 58–76; TEMP 97.5–98.7; O2SAT 93–97
[2024-04-22 07:30] LABS: BASO % 0.5 % (0.0-1.0); EOS # 0.1 10^3/uL (0.0-0.5); EOS % 2.4 % (0.0-3.0); HEMATOCRIT 33.1 % (36.0-47.0); HEMOGLOBIN 10.4 g/dl (12.0-15.5); LYMPH # 0.7 10^3/uL (1.5-5.0); LYMPH % 12.7 % (24.0-44.0); MEAN CORPUSCULAR HEMOGLOBIN 28.2 pg (27.0-33.0); MEAN CORPUSCULAR HGB CONC 31.4 g/dl (32.0-36.5); MEAN CORPUSCULAR VOLUME 89.7 fl (80.0-96.0); MONO # 0.4 10^3/uL (0.0-0.8); MONO % 6.9 % (2.0-8.0); NEUTROPHILS # 4.3 10^3/uL (1.5-8.5); NEUTROPHILS % 77.3 % (36.0-66.0); PLATELET COUNT, AUTOMATED 202 10^3/uL (150-450); RED BLOOD COUNT 3.69 10^6/uL (4.00-5.40); WHITE BLOOD COUNT 5.5 10^3/uL (4.0-10.0)
[2024-04-22 08:04] LABS: BLOOD UREA NITROGEN 13 MG/DL (9-23); CALCIUM LEVEL 8.9 MG/DL (8.3-10.6); CARBON DIOXIDE LEVEL 26 MMOL/L (20-31); CHLORIDE LEVEL 109 MMOL/L (98-107); CREATININE FOR GFR 0.56 MG/DL (0.55-1.30); GLOMERULAR FILTRATION RATE > 60.0 (>45); GLUCOSE, FASTING 95 MG/DL (74-106); MAGNESIUM LEVEL 1.7 MG/DL (1.8-2.4); POTASSIUM SERUM 4.4 MMOL/L (3.5-5.1); SODIUM LEVEL 142 MMOL/L (136-145)
[2024-04-22] MEDS: bisoproloL fumarate 10 MG TAB PO SCH (10:28)
[2024-04-22] MEDS: SINEMET 25-100 MG TAB PO SCH ×2 (10:28→15:54)
[2024-04-22] MEDS: RIVAROXABAN 20MG TAB (XARELTO) PO SCH (10:30)
[2024-04-22] MEDS: MAG SULF 1GM/100ML (MAG RUN) 1 GM in IV 1 EA IV ONE (10:31)
[2024-04-22] MEDS: CEFDINIR 300 MG CAP (OMNICEF) PO SCH (10:31)
[2024-04-22] MEDS: GABAPENTIN 100 MG CAP PO SCH (15:54)
[2024-04-23] VITALS (9 sets, daily range): BP systolic 160–186; BP diastolic 74–96; TEMP 97.6–98; O2SAT 92–96
[2024-04-23 06:43] LABS: BASO % 0.9 % (0.0-1.0); EOS # 0.2 10^3/uL (0.0-0.5); EOS % 3.6 % (0.0-3.0); HEMATOCRIT 36.7 % (36.0-47.0); HEMOGLOBIN 11.1 g/dl (12.0-15.5); LYMPH # 1.3 10^3/uL (1.5-5.0); LYMPH % 28.7 % (24.0-44.0); MEAN CORPUSCULAR HEMOGLOBIN 27.8 pg (27.0-33.0); MEAN CORPUSCULAR HGB CONC 30.2 g/dl (32.0-36.5); MONO # 0.6 10^3/uL (0.0-0.8); MONO % 13.4 % (2.0-8.0); NEUTROPHILS # 2.3 10^3/uL (1.5-8.5); NEUTROPHILS % 53.2 % (36.0-66.0); PLATELET COUNT, AUTOMATED 188 10^3/uL (150-450); RED BLOOD COUNT 3.99 10^6/uL (4.00-5.40); WHITE BLOOD COUNT 4.4 10^3/uL (4.0-10.0)
[2024-04-23 07:12] LABS: BLOOD UREA NITROGEN 8 MG/DL (9-23); CALCIUM LEVEL 9.2 MG/DL (8.3-10.6); CARBON DIOXIDE LEVEL 27 MMOL/L (20-31); CHLORIDE LEVEL 108 MMOL/L (98-107); CREATININE FOR GFR 0.57 MG/DL (0.55-1.30); GLOMERULAR FILTRATION RATE > 60.0 (>45); GLUCOSE, FASTING 85 MG/DL (74-106); MAGNESIUM LEVEL 1.8 MG/DL (1.8-2.4); POTASSIUM SERUM 3.9 MMOL/L (3.5-5.1); SODIUM LEVEL 144 MMOL/L (136-145)
[2024-04-23] MEDS ORDERED: CEFD1CAP9 PO (12:15)
== END 2024-04-23 16:06 ==
LOC: M ED 08:13 → M ED INP 08:14 → M PCU 04-22 14:12
PROVIDERS: ADMIT Internal Medicine; ATTEND Internal Medicine
DX: T43.502A Poisoning by unspecified antipsychotics and neuroleptics, intentional self-harm, initial encounter (principal); G20.A1 Parkinson's disease without dyskinesia, without mention of fluctuations; I48.91 Unspecified atrial fibrillation; I10 Essential (primary) hypertension; G62.9 Polyneuropathy, unspecified; M54.9 Dorsalgia, unspecified; G89.29 Other chronic pain; G92.8 Other toxic encephalopathy; Z85.3 Personal history of malignant neoplasm of breast; F41.9 Anxiety disorder, unspecified; F32.A Depression, unspecified; K21.9 Gastro-esophageal reflux disease without esophagitis; Z98.84 Bariatric surgery status; Z90.79 Acquired absence of other genital organ(s); R40.0 Somnolence; E87.0 Hyperosmolality and hypernatremia; Z79.899 Other long term (current) drug therapy; Z88.5 Allergy status to narcotic agent; N39.0 Urinary tract infection, site not specified; B96.20 Unspecified Escherichia coli [E. coli] as the cause of diseases classified elsewhere; Z79.01 Long term (current) use of anticoagulants; R07.89 Other chest pain

== ENCOUNTER 2024-04-23 14:12 | Inpatient (IN) | payer MEDICAID, MEDICARE, OTHER ==
[~2024-04-23] VITALS: Ht 152.4 cm; Wt 67.0 kg
[~2024-04-23 14:12] MED LIST changes: +BISO10TA14 PO; +BUPR15TASR PO; +CEFD1CAP9 PO; +FLUO-365 PO; +MULT-90 PO; +NALT50TA4 PO; +QUET200T2 PO
[2024-04-23] MEDS ORDERED: IBUPROFEN 400MG TAB PO PRN (14:40)
[2024-04-23] MEDS ORDERED: diphenhydrAMINE 25MG CAP PO PRN (14:40)
[2024-04-23] MEDS ORDERED: MOM 30ML SUSPENSION UDC PO PRN (14:40)
[2024-04-23] MEDS ORDERED: MAALOX 30 ML SUSP *UDC PO PRN (14:40)
[2024-04-23 16:10] VITALS: BP 160/74; TEMP 97.6; O2SAT 94
[2024-04-23] MEDS: traZODone 50 MG TAB PO PRN (20:10)
[2024-04-23 23:22] VITALS: BP 182/104; TEMP 98.7; O2SAT 96
[2024-04-23] MEDS: MAALOX 30 ML SUSP *UDC PO STA (23:33)
[2024-04-24 04:12] LABS: BASO % 0.5 % (0.0-1.0); EOS # 0.1 10^3/uL (0.0-0.5); EOS % 2.4 % (0.0-3.0); HEMATOCRIT 35.3 % (36.0-47.0); HEMOGLOBIN 11.1 g/dl (12.0-15.5); LYMPH # 1.1 10^3/uL (1.5-5.0); LYMPH % 18.9 % (24.0-44.0); MEAN CORPUSCULAR HEMOGLOBIN 28.4 pg (27.0-33.0); MEAN CORPUSCULAR HGB CONC 31.4 g/dl (32.0-36.5); MEAN CORPUSCULAR VOLUME 90.3 fl (80.0-96.0); MONO # 0.7 10^3/uL (0.0-0.8); MONO % 11.3 % (2.0-8.0); NEUTROPHILS # 3.9 10^3/uL (1.5-8.5); NEUTROPHILS % 66.7 % (36.0-66.0); PLATELET COUNT, AUTOMATED 199 10^3/uL (150-450); RED BLOOD COUNT 3.91 10^6/uL (4.00-5.40); WHITE BLOOD COUNT 5.9 10^3/uL (4.0-10.0)
[2024-04-24 04:30] LABS: D-DIMER QUANT 1.66 ug/mL (<0.5); INR 0.99; PROTHROMBIN TIME 13.4 SECONDS (12.5-14.5)
[2024-04-24 04:38] LABS: CPK CREATINE PHOSPHOKINASE 96 U/L (34-145)
[2024-04-24 04:42] LABS: ALBUMIN 3.3 G/DL (3.2-5.2); ALKALINE PHOSPHATASE 86 U/L (35-104); ALT/SGPT 14 U/L (7.0-40); AST/SGOT 15 U/L (<34); BILIRUBIN,DIRECT 0.1 MG/DL (<0.4); BILIRUBIN,TOTAL 0.4 MG/DL (0.3-1.2); BLOOD UREA NITROGEN 11 MG/DL (9-23); CALCIUM LEVEL 9.3 MG/DL (8.3-10.6); CARBON DIOXIDE LEVEL 29 MMOL/L (20-31); CHLORIDE LEVEL 106 MMOL/L (98-107); CK-MB VALUE MASS 1.1 NG/ML (<3.6); CREATININE FOR GFR 0.62 MG/DL (0.55-1.30); GLOMERULAR FILTRATION RATE > 60.0 (>45); GLUCOSE, FASTING 91 MG/DL (74-106); MAGNESIUM LEVEL 1.6 MG/DL (1.8-2.4); MB/CK RELATIVE INDEX 1.14 (< OR =4); POTASSIUM SERUM 4.5 MMOL/L (3.5-5.1); SODIUM LEVEL 141 MMOL/L (136-145); TOTAL PROTEIN 6.1 G/DL (5.7-8.2)
[2024-04-24 06:10] VITALS: BP 122/73; TEMP 98.6; O2SAT 95
[2024-04-24 07:05] LABS: CK-MB VALUE MASS < 1.0 NG/ML (<3.6)
[2024-04-24 07:07] LABS: CPK CREATINE PHOSPHOKINASE 83 U/L (34-145)
[2024-04-24] MEDS: ACETAMINOPHEN 325 MG TAB PO PRN (07:56)
[2024-04-24] MEDS ORDERED: ISOVUE-370 76% 100ML VIAL As Ordered ONE (10:21)
[2024-04-24] MEDS ORDERED: HOME MED LIST COMPLETE! XX SCH (12:15)
[2024-04-24 14:46] VITALS: BP 125/83; TEMP 97.9; O2SAT 95
[2024-04-24] MEDS: PANTOPRAZOLE 40MG TAB (PROTONIX) PO SCH (14:55)
[2024-04-24] MEDS: MULTIVITAMINS/MINERALS THERAP 1 TAB PO SCH (14:55)
[2024-04-24] MEDS: FLUoxetine 20MG CAP PO SCH (14:55)
[2024-04-24] MEDS: buPROPion **SR TABLET** (ZYBAN) 150MG PO SCH (14:56)
[2024-04-24] MEDS: CEFDINIR 300 MG CAP (OMNICEF) PO SCH (14:56)
[2024-04-24] MEDS: NALTREXONE 50 MG TAB PO SCH (14:56)
[2024-04-24] MEDS: bisoproloL fumarate 10 MG TAB PO SCH (14:56)
[2024-04-24] MEDS: SINEMET 25-100 MG TAB PO SCH (14:57)
[2024-04-24] MEDS: GABAPENTIN 300 MG CAP PO SCH (15:02)
[2024-04-24] MEDS: RIVAROXABAN 20MG TAB (XARELTO) PO SCH (18:00)
[2024-04-24] MEDS: SINEMET**CR** 25/100 TABCR PO SCH (21:10)
[2024-04-24] MEDS: QUEtiapine FUMARATE 100 MG TAB PO PRN (21:11)
[2024-04-25 06:38] VITALS: BP 98/54; TEMP 97.9; O2SAT 96
[2024-04-25 08:18] VITALS: BP 127/73
[2024-04-25 15:21] VITALS: BP 123/75; TEMP 98.8; O2SAT 96
[2024-04-25] MEDS: QUEtiapine FUMARATE 100 MG TAB PO SCH (20:41)
[2024-04-26 06:42] VITALS: BP 127/78; TEMP 97; O2SAT 96
[2024-04-26 08:00] VITALS: BP 151/80
[2024-04-26 08:02] VITALS: BP 151/80
[2024-04-26] MEDS ORDERED: QUET100T2 PO (08:21)
== END 2024-04-26 13:30 | disposition home or self-care (01) | DRG 881 ==
LOC: M PSY 16:10
PROVIDERS: ADMIT Psychiatry & Neurology Psychiatry; ATTEND Psychiatry & Neurology Psychiatry
DX: F32.A Depression, unspecified (principal); N39.0 Urinary tract infection, site not specified; F41.9 Anxiety disorder, unspecified; F60.3 Borderline personality disorder; F10.10 Alcohol abuse, uncomplicated; I48.91 Unspecified atrial fibrillation; I10 Essential (primary) hypertension; G62.9 Polyneuropathy, unspecified; M54.59 Other low back pain; F43.10 Post-traumatic stress disorder, unspecified; R29.6 Repeated falls; M81.0 Age-related osteoporosis without current pathological fracture; Z91.040 Latex allergy status; Z88.5 Allergy status to narcotic agent; Z79.899 Other long term (current) drug therapy; G20.C Parkinsonism, unspecified; B96.29 Other Escherichia coli [E. coli] as the cause of diseases classified elsewhere; K21.9 Gastro-esophageal reflux disease without esophagitis; Z85.3 Personal history of malignant neoplasm of breast

== ENCOUNTER 2025-03-19 15:10 | Inpatient (IN) | payer MEDICARE, OTHER ==
[~2025-03-19] VITALS: Ht 152.4 cm; Wt 168.6 kg
[2025-03-19 16:28] LABS: PLATELET COUNT, AUTOMATED 219 10^3/uL (150-450)
[2025-03-19 16:55] LABS: ETHYL ALCOHOL (ETHANOL) 0.277 % (0.000-0.010)
[2025-03-19 16:57] LABS: ALT/SGPT 18 U/L (7.0-40); AST/SGOT 25 U/L (<34); CALCIUM LEVEL 8.7 MG/DL (8.3-10.6); CARBON DIOXIDE LEVEL 24 MMOL/L (20-31); CHLORIDE LEVEL 103 MMOL/L (98-107); CREATININE FOR GFR 0.57 MG/DL (0.55-1.30); GLOMERULAR FILTRATION RATE > 90.0 (>45); POTASSIUM SERUM 4.7 MMOL/L (3.5-5.1); SALICYLATE LEVEL < 3.0 MG/DL (<30); SODIUM LEVEL 138 MMOL/L (136-145)
[2025-03-19 19:02] LABS: AMPHETAMINES LEVEL URINE NEGATIVE (NEGATIVE); BARBITURATES URINE NEGATIVE (NEGATIVE); BENZODIAZEPINES URINE NEGATIVE (NEGATIVE)
[2025-03-19 19:03] LABS: CANNABINOIDS URINE NEGATIVE (NEGATIVE); COCAINE METABOLITE URINE NEGATIVE (NEGATIVE); METHADONE URINE NEGATIVE (NEGATIVE); OPIATES URINE NEGATIVE (NEGATIVE); PHENCYCLIDINE URINE NEGATIVE (NEGATIVE)
[2025-03-19] MEDS: THIAMINE 100 MG TAB PO SCH (21:00)
[2025-03-19] MEDS: ACETAMINOPHEN 325 MG TAB PO ONE (22:20)
[2025-03-19] MEDS ORDERED: MAALOX 30 ML SUSP *UDC PO PRN (23:25)
[2025-03-19] MEDS ORDERED: MOM 30 ML SUSPENSION UDC PO PRN (23:25)
[2025-03-20] VITALS (9 sets, daily range): BP systolic 98–156; BP diastolic 58–98; TEMP 97.8–99; O2SAT 89–96
[2025-03-20] MEDS: traZODone 50 MG TAB PO PRN (01:16)
[2025-03-20] MEDS: IBUPROFEN 400 MG TAB PO PRN (01:17)
[2025-03-20] MEDS ORDERED: HOME MED LIST COMPLETE! XX SCH (07:50)
[2025-03-20] MEDS: FOLIC ACID 1 MG TAB PO SCH (08:25)
[2025-03-20] MEDS: MULTIVITAMINS/MINERALS THERAP 1 TAB PO SCH (08:25)
[2025-03-20] MEDS: ACETAMINOPHEN 325 MG TAB PO PRN (08:26)
[2025-03-20] MEDS: CARBIDOPA/LEVODOPA 25 MG/100 MG PO SCH (09:00)
[2025-03-20] MEDS ORDERED: CARB25TA9 PO (09:32)
[2025-03-20] MEDS ORDERED: THERTAB19 PO (10:09)
[2025-03-20] MEDS ORDERED: GABA-1172 PO (10:09)
[2025-03-20] MEDS ORDERED: FLUO-365 PO (10:09)
[2025-03-20] MEDS ORDERED: FOLI1TAB11 PO (10:09)
[2025-03-20] MEDS ORDERED: THIA100TA PO (10:09)
[2025-03-20] MEDS ORDERED: BUPR-71 PO (10:09)
[2025-03-20] MEDS ORDERED: TALK1KIT MC (10:17)
[2025-03-20] MEDS: buPROPion **SR** 150 MG TABLET PO SCH (11:22)
[2025-03-20] MEDS: GABAPENTIN 300 MG CAP PO SCH (11:23)
[2025-03-20] MEDS: FLUoxetine 20 MG CAP PO SCH (11:23)
[2025-03-20] MEDS: CARBIDOPA/LEVODOPA **ER** 25 MG/100 MG PO SCH (20:17)
[2025-03-20] MEDS ORDERED: CARBIDOPA/LEVODOPA 25 MG/100 MG PO SCH (21:00)
[2025-03-21 06:41] VITALS: BP 112/71; TEMP 97.8; O2SAT 97
[2025-03-21 08:33] VITALS: BP 117/60
[2025-03-21] MEDS ORDERED: RIVAROXABAN 20MG TAB PO SCH (18:00)
== END 2025-03-21 10:51 | disposition home or self-care (01) | DRG 885 ==
LOC: M ED 15:10 → M ED INP 23:21 → M PSY 03-20 00:57
PROVIDERS: ADMIT General Practice; ATTEND General Practice
DX: F33.1 Major depressive disorder, recurrent, moderate (principal); R45.851 Suicidal ideations; F41.9 Anxiety disorder, unspecified; Z91.51 Personal history of suicidal behavior; F10.120 Alcohol abuse with intoxication, uncomplicated; I48.91 Unspecified atrial fibrillation; I10 Essential (primary) hypertension; G62.9 Polyneuropathy, unspecified; Z85.3 Personal history of malignant neoplasm of breast; M54.9 Dorsalgia, unspecified; G89.29 Other chronic pain; K21.9 Gastro-esophageal reflux disease without esophagitis; G20.C Parkinsonism, unspecified; Z98.84 Bariatric surgery status; Z90.49 Acquired absence of other specified parts of digestive tract; Z90.79 Acquired absence of other genital organ(s); E78.5 Hyperlipidemia, unspecified; Z79.899 Other long term (current) drug therapy; Z88.5 Allergy status to narcotic agent; Z91.52 Personal history of nonsuicidal self-harm